=== PATIENT | male | born 1980 | race Caucasian/White ===

== ENCOUNTER → 2020-04-14 15:28 | Outpatient (BNVA) | payer OTHER, SELFPAY | PROVIDERS: Visit Provider Emergency Medicine | DX: M79.672 Pain in left foot (principal) | CPT/HCPCS: 73630 ==

== ENCOUNTER 2022-04-03 06:00 | Outpatient (RCR) | payer OTHER, SELFPAY | END 2022-04-19 23:59 | disposition home or self-care (01) | LOC: MPT 06:00 | PROVIDERS: Visit Provider Nurse Practitioner | DX: M25.562 Pain in left knee (principal) | CPT/HCPCS: 97110; 97161; G0283 ==

== ENCOUNTER 2022-04-20 06:00 | Outpatient (RCR) | payer OTHER, SELFPAY | END 2022-05-20 23:59 | disposition home or self-care (01) | LOC: MPT 06:00 | PROVIDERS: Visit Provider Nurse Practitioner | DX: M25.562 Pain in left knee (principal) | CPT/HCPCS: 97110; G0283 ==

== ENCOUNTER 2022-12-19 20:00 | Outpatient (CLI) | payer OTHER, SELFPAY | END 2022-12-19 20:01 | disposition home or self-care (01) | LOC: SLEEP 12-20 04:36 | PROVIDERS: Visit Provider Nurse Practitioner | DX: G47.33 Obstructive sleep apnea (adult) (pediatric) (principal); G47.36 Sleep related hypoventilation in conditions classified elsewhere; R06.83 Snoring; R53.83 Other fatigue | CPT/HCPCS: 95811 ==

== ENCOUNTER 2024-03-08 18:25 | Emergency (ER) | payer OTHER, SELFPAY ==
[2024-03-08] VITALS (8 sets, daily range): BP systolic 134–159; BP diastolic 87–98; PULSE 61–79; RESP 17–18; TEMP 37.2; O2SAT 97–98; BMI 36.5
--- NOTE | 2024-03-08 18:33 | ECG_ITS ---
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 Measurements Intervals [place] Rate: 73 P: 177 MT: 292 QRS: 20 QRSD: 102 T: 32 QT: 349 QTc: 385 Interpretive Statements ELECTRONIC ATRIAL PACEMAKER ABNORMAL RHYTHM ECG INTERPRETATION BASED ON A DEFAULT AGE OF 40 YEARS No previous ECG available for comparison Electronically Signed On 03-09-2024 23:35:30 CDT by Jabier Andres M.D. [id number]
--- NOTE | 2024-03-08 19:26 | ECG_ITS ---
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 Measurements Intervals [place] Rate: 71 P: 32 [place]: 147 QRS: 32 QRSD: 104 T: 32 QT: 356 QTc: 389 Interpretive Statements SINUS RHYTHM Possible left atrial enlargement Compared to ECG 03/08/2024 18:33:54 Atrial-paced complex(es) or rhythm no longer present Electronically Signed On 03-09-2024 23:27:24 CDT by Jabier Andres M.D. [id number]
--- NOTE | 2024-03-08 19:26 | XRR_ITS ---
PROCEDURE INFORMATION: Exam: XR Chest Exam date and time: 03/08/2024 7:29 PM Age: 43 years old Clinical indication: Pain; Chest pressure; Additional info: Left sided chest pain TECHNIQUE: Imaging protocol: Radiologic exam of the chest. Views: 1 view. COMPARISON: No relevant prior studies available. FINDINGS: Lungs: The lungs are adequately expanded. No focal consolidations or pulmonary edema. Pleural spaces: No pleural effusions or pneumothorax. Heart/Mediastinum: No cardiomegaly. Bones/joints: No acute fractures. XR/XR chest 1V portable [id number] IMPRESSION: No acute pulmonary disease.
--- NOTE | 2024-03-08 19:28 | ED_ITS ---
HPI - Abdominal Pain 2 General: Chief Complaint: Abdominal Pain Stated Complaint: Chest / under right arm pain Time Seen by Provider: 03/08/24 19:04 History of Present Illness: Patient presents to the ER with complaints of left-sided chest with lateral pain and left upper quadrant abdominal pain is up underneath his breast/armpit area. When it is worse it is an 8 when he is at rest it is a 3. Patient says there is nothing really he knows of that to make it better or make it worse. Patient did take some Gas-X because he had some constant belching. This did not seem to help. Denies any injury or denies any cardiac history. Related Data Previous Rx's Medication Instructions Recorded mupirocin 2 % topical ointment 1 applic topical TID cellulitis 04/14/20 #15 grams sulfamethoxazole 800 1 tab PO BID 10 days #20 tabs 04/14/20 mg-trimethoprim 160 mg tablet Allergies Allergy/AdvReac Type Severity Reaction Status Date / Time No Known Allergies Allergy Verified 03/08/24 18:45 Review of Systems 2 General: Reports: 10 or more systems reviewed and unremarkable except in HPI and below PFSH ED 2 PFSH: Family History Denies family history of Diabetes Cancer Social History Smoking and tobacco/nicotine status: never used tobacco/nicotine Alcohol intake: never Substance/Drug Use: never Physical Exam 2 Const: COMMON NORMALS: no acute distress, average body habitus, patient oriented x3, no limitations, healthy appearing, alert and well nourished HENMT: COMMON NORMALS: normocephalic, atraumatic, hearing grossly normal bilaterally, external ears normal, Normal external nose present and moist oral mucous membranes HEAD & SCALP: normocephalic and atraumatic NOSE: Normal external nose present EXTERNAL EAR: Yes external ears normal Neck/C-Spine: COMMON NORMALS: no JVD Chest: COMMONS NORMALS: normal inspection of the chest; negative for normal palpation of entire chest wall (Tenderness with palpation left lateral chest wall) Resp: COMMON NORMALS: normal respiratory effort, No retractions, No use of accessory muscles and clear to auscultation bilaterally AUSCULTATION: clear to auscultation bilaterally Cardio: COMMON NORMALS: no JVD, regular rate, regular rhythm, S1 normal heart sound present, S2 normal heart sound present, No gallops present (Cardio), No clicks present (Cardio), No murmurs present (Cardio) and No rub (Cardio) R ATE: regular rate RHYTHM: regular rhythm HEART SOUNDS: S1 normal heart sound present and S2 normal heart sound present GI: COMMON NORMALS: Normal to inspection, nondistended, normoactive bowel sounds present, Soft to palpation, non-tender, No hepatosplenomegaly present and no masses PALPATION: Yes Soft to palpation and Yes No hepatosplenomegaly present Neuro: COMMON NORMALS: patient oriented x3 SENSORIUM/ORIENTATION: Yes alert Course 2 Vital Signs: Vital signs: Vital Signs Temperature 98.9 F 03/08/24 18:41 Pulse Rate 67 03/08/24 21:00 Respiratory Rate 17 03/08/24 21:00 Blood Pressure 134/92 03/08/24 21:00 Pulse Oximetry 97 03/08/24 21:00 Oxygen Delivery Me thod Room Air 03/08/24 21:00 MDM - Abdominal Pain Medical Decision Making Patient serial labs, EKGs, chest x-ray, all essentially benign. These results were discussed with the patient. Patient be discharged back to his family practice physician for further workup and evaluation. Medical Records I reviewed the patient's medical records. Lab Data I reviewed the patient's lab results. 03/08/24 19:18 03/08/24 19:18 Labs/Radiology: Radiology Impressions Chest X-Ray 03/08/24 19:26 IMPRESSION: No acute pulmonary disease. Laboratory Results WBC 8.41 10^3/uL (3.29-11.43) 03/08/24 19:18 RBC 5.17 10^6/uL (3.85-5.65) 03/08/24 19:18 Hgb 14.70 g/dL (11.27-16.99) 03/08/24 19:18 Hct 44.5 % (37-53) 03/08/24 19:18 MCV 86.1 fl (82-101) 03/08/24 19:18 MCH 28.4 pg (27-33) 03/08/24 19:18 MCHC 33.0 g/dL (30-55) 03/08/24 19:18 RDW 12.7 % (12.1-15.1) 03/08/24 19:18 Plt Count 211 10^3/cmm (157-399) 03/08/24 19:18 MPV 10.8 fL (7.4-10.4) H 03/08/24 19:18 Neut % (Auto) 54.3 % 03/08/24 19:18 Lymph % (Auto) 34.1 % 03/08/24 19:18 [place] % (Auto) 9.6 % 03/08/24 19:18 Eos % (Auto) 1.8 % 03/08/24 19:18 Baso % (Auto) 0.1 % 03/08/24 19:18 Neut # (Auto) 4.56 10^3/uL (1.8-7.7) 03/08/24 19:18 Lymph # (Auto) 2.9 10^3/uL (0.8-4.8) 03/08/24 19:18 [place] # (Auto) 0.8 10^3/uL (0.2-0.9) 03/08/24 19:18 Eos # (Auto) 0.2 10^3/uL (0.0-0.8) 03/08/24 19:18 Baso # (Auto) 0.0 10^3/uL (0.0-0.1) 03/08/24 19:18 Nucleated RBC % (auto) 0 % 03/08/24 19:18 Nucleated RBCs # 0.0 /100WBC 03/08/24 19:18 Sodium 139 mmol/L (136-145) 03/08/24 19:18 Potassium 4.1 mmol/L (3.5-5.1) 03/08/24 19:18 Chloride 102 mmol/L (98-107) 03/08/24 19:18 Carbon Dioxide 26 mmol/L (22-29) 03/08/24 19:18 Anion Gap 15.1 (5-19) 03/08/24 19:18 BUN 16 mg/dL (6-20) 03/08/24 19:18 Creatinine 0.8 mg/dL (0.7-1.2) 03/08/24 19:18 GFR Calculation 106.5 mL/min (90-130) 03/08/24 19:18 Glucose 131 mg/dL (65-115) H 03/08/24 19:18 Calculated Osmolality 291 mOsm/kg (285-295) 03/08/24 19:18 Calcium 9.0 mg/dL (8.5-10.5) 03/08/24 19:18 Total Bilirubin 0.2 mg/dL (0.15-1.2) 03/08/24 19:18 AST 14 U/L (0-40) 03/08/24 19:18 ALT 17 U/L (0-41) 03/08/24 19:18 Alkaline Phosphatase 80 U/L (40-130) 03/08/24 19:18 Troponin T Baseline < 6 ng/L (0-15) 03/08/24 19:18 Troponin T 120 Minute 6.00 ng/L (0-15) 03/08/24 21:14 Delta Troponin T 0.33832 ABS# (0-10) 03/08/24 21:14 Total Protein 7.2 g/dL (6.6-8.7) 03/08/24 19:18 Albumin 4.5 g/dL (3.5-5.2) 03/08/24 19:18 Globulin 2.7 g/dL (1.3-4.6) 03/08/24 19:18 Lipase 26 U/L (13-60) 03/08/24 19:18 All radiology interpretation(s) finalized by discharge Discharge Plan Discharge Patient Disposition: Home Clinical Impression: Left-sided chest wall pain Condition: Stable Prescriptions: No Action mupirocin 2 % ointment 1 applic TOPICAL TID Qty: 15 1RF Rx Instructions: apply and cover with warm moist compress for 15 minutes, 3 times daily sulfamethoxazole-trimethoprim 800-160 mg tablet 1 tab PO BID 10 Days Qty: 20 0RF Discharge Orders: Discharge ED (Routine); Ordered 03/08/24 Ordered By: Hermes Adames Patient Instructions: Chest Pain - Chest Wall Activity Restrictions/Additional Instructions: Your evaluation in the ER that included lab work, chest x-ray, EKGs all essentially come back benign. It is felt that your chest wall pain is not cardiac in nature. Please follow-up with your family practice physician for further evaluation testing. If your chest pain worsens or changes please feel free to return to the ER. Coding Level of Care Code ED Cooking Chef for Warren Torres
[2024-03-08 19:41] LABS: Basophils % 0.1 %; Eosinophils # 0.2 10^3/uL (0.0-0.8); Eosinophils % 1.8 %; Hematocrit 44.5 % (37-53); Lymphocytes # 2.9 10^3/uL (0.8-4.8); Lymphocytes % 34.1 %; Mean Corpuscular Hemoglobin 28.4 pg (27-33); Mean Corpuscular Volume 86.1 fl (82-101); Mean Platelet Volume 10.8 fL (7.4-10.4); Monocytes # 0.8 10^3/uL (0.2-0.9); Monocytes % 9.6 %; Neutrophils # 4.56 10^3/uL (1.8-7.7); Neutrophils % 54.3 %; Nucleated Red Blood Cells % 0 %; Platelet Count 211 10^3/cmm (157-399); Red Blood Count 5.17 10^6/uL (3.85-5.65); Red Cell Distribution Width 12.7 % (12.1-15.1); White Blood Count 8.41 10^3/uL (3.29-11.43)
[2024-03-08] MEDS: lidocaine 2% viscous 15 ML, aluminum-mag hydrox-simethicon 30 ML, sucralfate oral liq 1 GM PO (19:49)
[2024-03-08 19:51] LABS: Troponin(5th) Baseline < 6 ng/L (0-15)
[2024-03-08 19:52] LABS: Alanine Aminotransferase 17 U/L (0-41); Albumin Level 4.5 g/dL (3.5-5.2); Alkaline Phosphatase 80 U/L (40-130); Anion Gap 15.1 (5-19); Aspartate Amino Transferase 14 U/L (0-40); Blood Urea Nitrogen 16 mg/dL (6-20); Carbon Dioxide 26 mmol/L (22-29); Chloride 102 mmol/L (98-107); Creatinine Clr Calc Pharmacy 145.3801; Globulin 2.7 g/dL (1.3-4.6); Glomerular Filtration Rate 106.5 mL/min (90-130); Glucose 131 mg/dL (65-115); Lipase 26 U/L (13-60); Osmolality Calculated 291 mOsm/kg (285-295); Potassium 4.1 mmol/L (3.5-5.1); Sodium 139 mmol/L (136-145); Total Bilirubin 0.2 mg/dL (0.15-1.2); Total Protein 7.2 g/dL (6.6-8.7)
[2024-03-08] MEDS: ketorolac 30 mg/mL INJ IVP (19:56)
--- NOTE | 2024-03-08 20:58 | ECG_ITS ---
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 Measurements Intervals [place] Rate: 59 P: 31 [place]: 151 QRS: 32 QRSD: 101 T: 31 QT: 376 QTc: 374 Interpretive Statements SINUS BRADYCARDIA Compared to ECG 03/08/2024 20:12:40 Sinus rhythm no longer present Electronically Signed On 03-09-2024 23:36:24 CDT by Jabier Andres M.D. [email or web address] medical [id number]
[2024-03-08 21:35] LABS: Troponin 5 2HR Delta 0.00001 ABS# (0-10)
== END 2024-03-08 21:59 | disposition home or self-care (01) ==
PROVIDERS: Emergency Provider Emergency Medicine
DX: R07.89 Other chest pain (principal)
CPT/HCPCS: 71045; 80053; 83690; 84484; 85025; 93005; 96374; 99285; J1885